=== PATIENT | female | born 1960 | race Caucasian/White ===

== ENCOUNTER 2017-05-26 08:52 | Inpatient (IN) | payer MEDICAID ==
[~2017-05-26] VITALS: Ht 152.4 cm; Wt 49.9 kg
[2017-05-26 11:11] LABS: BASOPHILS % 0.4 % (0.0-2.0); EOSINOPHILS % 0.7 % (0.0-5.0); HEMOGLOBIN. 8.7 g/dL (12.0-16.0); LYMPHOCYTES % 8.3 % (20.0-50.0); MEAN CORPUSCULAR HEMOGLOBIN 30.2 pg (28.0-32.0); MEAN CORPUSCULAR VOLUME 90.2 fL (81.0-99.0); MEAN PLATELET VOLUME 8.2 fl (7.4-10.4); MONOCYTES % 4.9 % (2.0-8.0); NEUTROPHILS % 85.7 % (40.0-76.0); PLATELET 168 x1000/uL (130-400); RED BLOOD CELL COUNT 2.88 mill/uL (4.2-5.4); RED CELL DISTRIBUTION WIDTH 15.5 % (11.6-14.6)
[2017-05-26 11:12] LABS: CHLORIDE 109 mEq/L (98-107)
[2017-05-26 11:14] LABS: INR 1.2; PROTHROMBIN TIME 12.1 sec
[2017-05-26 11:20] LABS: CARBON DIOXIDE 18 mEq/L (21-32); TROPONIN I 0.06 ng/mL (0.00-0.04)
[2017-05-26 11:22] LABS: CLARITY URINE CLEAR (CLEAR); COLOR URINE YELLOW (YELLOW); KETONES URINE NEGATIVE (NEGATIVE); LEUKOCYTE ESTERASE URINE TRACE (NEGATIVE); NITRITE URINE NEGATIVE (NEGATIVE); OCCULT BLOOD URINE 1+ (NEGATIVE); PROTEIN URINE 3+ (NEGATIVE); SPECIFIC GRAVITY URINE 1.012 (1.005-1.030); UROBILINOGEN URINE 0.2 E.U./dL (0.2-1.0)
[2017-05-26] MEDS ORDERED: FUROSEMIDE 40MG/4ML VIAL IVP ONE (12:15)
[2017-05-26] MEDS ORDERED: DEXTROSE 50% WATER 50ML SYRINGE IV PRN (14:45)
[2017-05-26] MEDS ORDERED: ONDANSETRON HCL 4MG/2ML VIAL IV PRN (14:45)
[2017-05-26] MEDS ORDERED: ACETAMINOPHEN 325MG TABLET PO PRN (14:45)
[2017-05-26] MEDS ORDERED: HYDROCODONE/ACETAMINOPHEN 5/325MG TABLET PO PRN (14:45)
[2017-05-26] MEDS ORDERED: IPRATROPIUM/ALBUTEROL 0.5-3(2.5)MG/3ML NEB INH PRN (14:45)
[2017-05-26 15:27] LABS: HEPATITIS B SURFACE ANTIGEN NEGATIVE
[2017-05-26] MEDS ORDERED: SODIUM POLYSTYRENE SULFONATE 15 G/60 ML BOT PO NR (15:42)
[2017-05-26 15:55] LABS: HEPATITIS B CORE AB IGM NEGATIVE
[2017-05-26 15:56] LABS: HEPATITIS A AB IGM NEGATIVE (NEGATIVE)
[2017-05-26] MEDS: CLONIDINE 0.1MG TABLET PO PRN (16:15)
[2017-05-26] MEDS ORDERED: GLIM4TAB2 PO (17:20)
[2017-05-26] MEDS ORDERED: PRAV40TA58 PO (17:20)
[2017-05-26] MEDS ORDERED: ENAL10TA PO (17:20)
[2017-05-26] MEDS: INSULIN LISPRO 100 UNITS/ML SUBCUT SCH ×2 (17:39→21:14)
[2017-05-26] MEDS: BLOOD SUGAR DIAGNOSTIC STRIP TEST SCH ×2 (17:39→20:51)
[2017-05-26] MEDS: ENALAPRIL 10MG TABLET PO SCH (20:43)
[2017-05-26] MEDS: ATORVASTATIN CALCIUM 10MG TABLET PO SCH (20:43)
[2017-05-27] MEDS: CLONIDINE 0.1MG TABLET PO PRN (00:18)
[2017-05-27] MEDS: CLONIDINE 0.2MG TABLET PO PRN ×2 (01:54→15:47)
[2017-05-27] MEDS: INSULIN LISPRO 100 UNITS/ML SUBCUT SCH ×4 (06:00→22:23)
[2017-05-27] MEDS: BLOOD SUGAR DIAGNOSTIC STRIP TEST SCH ×4 (06:00→21:00)
[2017-05-27 06:10] LABS: BASOPHILS % 0.7 % (0.0-2.0); EOSINOPHILS % 2.3 % (0.0-5.0); HEMOGLOBIN. 7.1 g/dL (12.0-16.0); LYMPHOCYTES % 24.6 % (20.0-50.0); MEAN CORPUSCULAR HEMOGLOBIN 30.7 pg (28.0-32.0); MEAN CORPUSCULAR VOLUME 89.7 fL (81.0-99.0); MONOCYTES % 9.6 % (2.0-8.0); NEUTROPHILS % 62.8 % (40.0-76.0); PLATELET 133 x1000/uL (130-400); RED CELL DISTRIBUTION WIDTH 15.2 % (11.6-14.6)
[2017-05-27 06:35] LABS: CARBON DIOXIDE 17 mEq/L (21-32); CHLORIDE 110 mEq/L (98-107); HDL CHOLESTEROL 39 mg/dL (40-59); LDL CHOLESTEROL 83 mg/dL (5-100); TROPONIN I 0.07 ng/mL (0.00-0.04)
[2017-05-27 07:15] LABS: HEMATOCRIT. 20.6 % (36.0-48.0)
[2017-05-27] MEDS: ENALAPRIL 10MG TABLET PO SCH (08:30)
[2017-05-27] MEDS: GLIMEPIRIDE 4MG TABLET PO SCH ×2 (08:30→17:29)
[2017-05-27] MEDS ORDERED: MEDICATION NOT ON FORMULARY EA (Pravastatin Sodium 40 MG) PO SCH (09:00)
[2017-05-27] MEDS ORDERED: SODIUM POLYSTYRENE SULFONATE 15 G/60 ML BOT PO SCH (10:30)
[2017-05-27] MEDS: SODIUM CHLORIDE 0.45% 1,000 ML IV SCH (10:58)
[2017-05-27] MEDS: CITRIC ACID/SODIUM CITRATE SOLN 30ML UDC PO SCH ×2 (13:03→17:28)
[2017-05-27] MEDS: ATORVASTATIN CALCIUM 10MG TABLET PO SCH (22:11)
[2017-05-28] MEDS: CLONIDINE 0.2MG TABLET PO PRN ×3 (00:19→20:41)
[2017-05-28] MEDS: SODIUM CHLORIDE 0.45% 1,000 ML IV SCH (05:46)
[2017-05-28 06:06] LABS: BASOPHILS % 0.4 % (0.0-2.0); EOSINOPHILS % 2.3 % (0.0-5.0); LYMPHOCYTES % 25.7 % (20.0-50.0); MEAN CORPUSCULAR HEMOGLOBIN 31.5 pg (28.0-32.0); MEAN CORPUSCULAR VOLUME 89.7 fL (81.0-99.0); MEAN PLATELET VOLUME 8.3 fl (7.4-10.4); MONOCYTES % 9.6 % (2.0-8.0); PLATELET 135 x1000/uL (130-400); RED BLOOD CELL COUNT 2.23 mill/uL (4.2-5.4); RED CELL DISTRIBUTION WIDTH 14.9 % (11.6-14.6)
[2017-05-28] MEDS: BLOOD SUGAR DIAGNOSTIC STRIP TEST SCH ×4 (06:07→20:38)
[2017-05-28] MEDS: INSULIN LISPRO 100 UNITS/ML SUBCUT SCH ×4 (06:08→22:21)
[2017-05-28 06:22] LABS: HEMATOCRIT. 20.1 % (36.0-48.0)
[2017-05-28 06:47] LABS: CREATINE KINASE MB FRACTION 3.9 ng/mL (0.5-3.6); TROPONIN I 0.04 ng/mL (0.00-0.04)
[2017-05-28] MEDS: CITRIC ACID/SODIUM CITRATE SOLN 30ML UDC PO SCH ×3 (09:13→17:43)
[2017-05-28] MEDS: ENALAPRIL 10MG TABLET PO SCH (09:13)
[2017-05-28] MEDS: GLIMEPIRIDE 4MG TABLET PO SCH ×2 (09:13→18:49)
[2017-05-28 15:07] LABS: A/G RATIO 1.4 (0.7-1.7); ALBUMIN 3.6 g/dL (2.9-4.4); ALPHA-1-GLOBULIN 0.2 g/dL (0.0-0.4); ALPHA-2-GLOBULIN 0.6 g/dL (0.4-1.0); BETA GLOBULIN 0.9 g/dL (0.7-1.3); GAMMA GLOBULINS 0.9 g/dL (0.4-1.8); GLOBULIN TOTAL 2.6 g/dL (2.2-3.9); M-SPIKE Not Observed g/dL (Not Observed); TOTAL PROTEIN SERUM 6.2 g/dL (6.0-8.5)
[2017-05-28 20:00] VITALS: BP 163/99
[2017-05-28] MEDS: ATORVASTATIN CALCIUM 10MG TABLET PO SCH (20:40)
[2017-05-29 13:11] LABS: COMPLEMENT C3 99 mg/dL (82-167)
[2017-05-29 13:11] LABS: *CREATININE RANDOM URINE 49.8 mg/dL (Not Estab.); MICROALBUMIN RANDOM URINE 1745.4 ug/mL (Not Estab.)
[2017-05-29] MEDS ORDERED: EPOETIN ALFA 10000UNITS/ML VIAL SUBCUT SCH (21:00)
[2017-05-30 13:06] LABS: ANTI-NUCLEAR ANTIBODIES DIRECT Negative (Negative)
== END 2017-05-28 23:10 | disposition left against medical advice (07) | DRG 52 ==
LOC: ER 09:03 → 7WST 12:08 → ENRESERV 15:55
PROVIDERS: ADMIT Internal Medicine; ATTEND Internal Medicine
DX: G93.41 Metabolic encephalopathy (principal); J90 Pleural effusion, not elsewhere classified; E87.2 Acidosis; I12.0 Hypertensive chronic kidney disease with stage 5 chronic kidney disease or end stage renal disease; N17.9 Acute kidney failure, unspecified; I31.3 Pericardial effusion (noninflammatory); N18.5 Chronic kidney disease, stage 5; E11.649 Type 2 diabetes mellitus with hypoglycemia without coma; I27.2 Other secondary pulmonary hypertension; E11.319 Type 2 diabetes mellitus with unspecified diabetic retinopathy without macular edema; I34.0 Nonrheumatic mitral (valve) insufficiency; Z53.21 Procedure and treatment not carried out due to patient leaving prior to being seen by health care provider; D64.9 Anemia, unspecified; E11.22 Type 2 diabetes mellitus with diabetic chronic kidney disease; E11.21 Type 2 diabetes mellitus with diabetic nephropathy; E78.00 Pure hypercholesterolemia, unspecified; E78.5 Hyperlipidemia, unspecified; E87.5 Hyperkalemia; H26.9 Unspecified cataract; N39.0 Urinary tract infection, site not specified; H40.9 Unspecified glaucoma; Z79.84 Long term (current) use of oral hypoglycemic drugs; Z79.899 Other long term (current) drug therapy; Z83.3 Family history of diabetes mellitus; Z99.2 Dependence on renal dialysis
CPT/HCPCS: 36415; 71010; 76770; 80048; 80053; 80061; 81001; 82043; 82550; 82553; 82570; 82962; 83036; 83605; 83735; 83935; 84132; 84155; 84156; 84165; 84443; 84484; 85025; 85610; 86038; 86160; 86705; 86709; 86803; 86850; 86900; 86920; 87040; 87086; 87340; 93005; 93306; 93970; 96374; 99285; J1815; J1940; J7030; J7050